=== PATIENT | female | born 1950 | race Caucasian/White ===

== ENCOUNTER → 2017-08-15 | Outpatient (CLI) | payer OTHER ==
--- NOTE | 2017-08-16 15:13 | MAMMOGRAPHY REPORT ---
BILATERAL DIGITAL SCREENING MAMMOGRAM TOMOSYNTHESIS WITH CAD: 08/15/2017 CLINICAL HISTORY: Routine screening. Patient has no complaints. TECHNIQUE: Breast tomosynthesis in addition to standard 2D mammography was performed. Current study was also evaluated with a Computer Aided Detection (CAD) system. COMPARISON: No prior exams were available for comparison. BREAST COMPOSITION: The tissue of both breasts is heterogeneously dense, which may obscure small mas ses. FINDINGS: There is an area of questionable architectural distortion seen within the left superior usha ast on the MLO view only, which may represent the patient's normal fibroglandular tissue pattern alth ough spot compression tomosynthesis views and possible ultrasound are recommended. Additionally, the re is a nodular 9 mm asymmetry seen along the posterior nipple line on the left MLO view middle depth , with possible correlates seen within the left medial breast. Recommend spot compression tomosynthe sis views and possible ultrasound for further evaluation. The remainder of both breasts demonstrate no suspicious masses, calcifications, or areas of informatica architect ural distortion. IMPRESSION: ACR BI-RADS CATEGORY 0: INCOMPLETE EVALUATION: NEED ADDITIONAL IMAGING EVALUATION Left breast asymmetry and possible left breast architectural distortion, for which additional imaging evaluation is recommended. The patient will be called to schedule an appointment. Approximately 10% of breast cancers are not detected with mammography. A negative mammographic report should not delay biopsy if a clinically suggestive mass is present. Aleksandra Thomas M.D. ah/:08/15/2017 16:17:22 Roller Setter: Radha SMITH)(Kurt), [facility] letter sent: Addl Imaging 0 BI-RADS Code: ACR BI-RADS Category 0: Incomplete Evaluation: Need Additional Imaging Evaluation
== END | disposition home or self-care (01) ==
LOC: C.MAMM 15:29
PROVIDERS: ATTEND Family Medicine
DX: Z12.31 Encounter for screening mammogram for malignant neoplasm of breast (principal); Z13.820 Encounter for screening for osteoporosis; N64.89 Other specified disorders of breast; M81.0 Age-related osteoporosis without current pathological fracture; M85.851 Other specified disorders of bone density and structure, right thigh

== ENCOUNTER 2023-06-15 05:46 | Inpatient (IN) ==
[2023-06-15 06:42] LABS: Basophils # (auto) 0.06 K/uL (0.00-0.20); Basophils % (auto) 0.7 %; Eosinophils # (auto) 0.12 K/uL (0.00-0.50); Eosinophils % (auto) 1.4 %; Hematocrit (blood only) 42.3 % (37.0-47.0); Hemoglobin 14.1 g/dl (12.0-16.0); Immature Granulocytes # (auto) 0.03 K/uL (0.01-0.20); Immature Granulocytes % (auto) 0.3 %; Lymphocytes # (auto) 3.17 K/uL (1.20-3.40); Lymphocytes % (auto) 36.1 %; Mean Corpuscular Hemoglobin 31.3 pg (25.0-34.0); Mean Corpuscular Hgb Conc 33.3 g/dL (32.0-36.0); Mean Corpuscular Volume 93.8 fL (80.0-100.0); Mean Platelet Volume 10.8 fL (9.4-12.4); Monocytes # (auto) 0.72 K/uL (0.11-0.59); Monocytes % (auto) 8.2 %; Neutrophils # (auto) 4.69 K/uL (1.40-6.50); Neutrophils % (auto) 53.3 %; Platelet Count 248 K/uL (130-400); RDW Coefficient of Variation 12.6 % (11.5-14.5); RDW Standard Deviation 43.3 fL (36.4-46.3); Red Blood Count 4.51 M/uL (4.20-5.40); White Blood Count 8.79 K/ul (4.8-10.8)
[2023-06-15] MEDS: ONDANSETRON INJ 2 MG/ML 2 ML VIAL IV STA (06:50)
[2023-06-15] MEDS: MoRPHine SULFATE 4 MG/ML 1 ML CARP\\VIAL IV STA ×2 (06:50→10:32)
[2023-06-15] MEDS: SODIUM CHLORIDE 0.9% 1,000 ML IV ONE (06:51)
[2023-06-15 06:59] LABS: Albumin Level 4.3 gm/dl (3.4-5.0); BUN Creatinine Ratio 32.4 (10-20); Bilirubin,Total 0.3 mg/dl (0.2-1.0); Calcium 9.3 mg/dl (8.6-10.3); Est GFR (African American) 99.3 ml/min; Est GFR (Non-African American) 85.7 ml/min; Globulin 2.1 gm/dl (2.5-4.0); Potassium 4.2 mmol/L (3.5-5.1); Total Protein 6.4 gm/dl (6.0-8.3)
--- NOTE | 2023-06-15 06:59 | Emergency Department Note ---
Impression & Plan Cholecystitis, Abnormal CT scan, lung, Thickened endometrium ED Provider Note Provider: Flaco Alexander MD DATE OF SERVICE: 06/15/2023 CHIEF COMPLAINT: Epigastric and chest burning to back HISTORY OF PRESENT ILLNESS: Patient is a 73-year-old female history of GERD and osteoporosis presenting here today reporting over the last several weeks she has been having some intermittent episodes of some burning in her chest upper abdomen radiating to her back. Woke around 2 AM overnight. Did take some Pepcid and only takes Nexium but not improving. No trauma or syncope. No difficulty breathing. No lower abdominal pain. Nauseous and vomited earlier but not really nauseous right now. No radiation of pain to the arms or neck. Did have a glass or 2 of red wine last night. No cardiac history reported. No change with breathing or movement. PAST MEDICAL HISTORY: As noted above MEDICATIONS: Reviewed home medications SOCIAL HISTORY: Non-smoker PHYSICAL EXAM: GENERAL: alert and oriented in no acute distress on stretcher Head: normocephalic and atraumatic EYES: No injection, discharge or icterus. NECK: Trachea midline. ENT: Mucous membranes pink and moist. LUNGS: Airway patent. No retractions. Breath sounds clear with good air entry bilaterally. HEART: Regular rate and rhythm. No chest wall tenderness ABDOMEN: Soft minimal upper abdominal epigastric tenderness. No guarding. No lower abdominal tenderness. SKIN: Acyanotic, warm, dry, without rashes EXTREMITIES: Without swelling, tenderness or deformity NEUROLOGICAL: No focal deficits. No aphasia. No facial droop or slurred speech. Ambulatory. EK bpm sinus bradycardia. No PVC or PAC. Some slight baseline artifact with a QTc of 413. Anterior T wave inversions noted. CONTINUOUS CARDIAC MONITORING: was ordered and showed a heart rate of 50s-60s bpm in normal sinus rhythm to sinus bradycardia Patient's laboratory studies and imaging reviewed. Differential includes Cardiac ischemia, aortic dissection, pulmonary embolism, pneumothorax, pneumonia, pericarditis, myocarditis, esophageal rupture, GERD, cholecystitis, pancreatitis, musculoskeletal, as well as other pathologies. IMPRESSION/MEDICAL DECISION MAKING: Patient Zentz with burning in her mid lower chest epigastrium to the back. No shortness of breath. Benign abdomen on exam without tenderness. Lower suspicion for cholecystitis or perforation. Could be gastric in nature or esophageal. EKG and troponin sent to help evaluate for cardiac etiology. Some subtle T wave changes in the EKG but troponin is normal here. Some nausea and vomiting earlier could represent pancreatitis. Blood work completed without leukocytosis or anemia. No severe electrolyte abnormality or signs of renal dysfunction. No evidence acute hepatitis or pancreatitis based on labs. Urinalysis appears contaminated not conclusive for infection. Sent for CT scan of the chest abdomen pelvis to exclude dissection or other intra-abdominal pathologies such as pancreatitis. Given some morphine and Protonix here initially for symptoms. Minimal improvement. Trial small mount of additional morphine and some GI cocktail. CT reports per radiology without evidence of dissection or PE. 1.3 cm right lower lobe opacity is noted possibly infectious but a repeat imaging in several months to exclude a lesion is recommended. Patient without evidence of diverticulitis or bowel obstruction. Normal appendix reported by radiology. CT report does indicate there is mild gallbladder distention but no large amount of inflammation noted. Will complete arrival quadrant ultrasound for further evaluation. There is a small area of likely endometrial thickening noted that again will need longer-term outpatient follow-up. Will cover empiric with antibiotics given the question of some GI involvement will cover broadly at least initially with Zosyn. Will send for right upper quadrant ultrasound again and given a small amount of additional morphine for pain. Respiratory viral panel negative. Ultrasound questions acute versus chronic cholecystitis. Will discuss with general surgery team. Will expand with Flagyl for additional anaerobic coverage given the ultrasound findings. Will need to be in the hospital given her pain. Again will need further outpatient follow-up of incidental findings in the lung as well as uterus. Discussed with the hospitalist team who will admit her. General surgery plans operative intervention on her gallbladder. DIAGNOSIS: Cholecystitis, upper abdominal pain DISPOSITION: General surgery will evaluate Patient was agreeable with this plan. Past Med/Surg History Medical History Tick bite Surgical History No history of previous surgery Family History Mother Cancer Other Heart disease Hypertension No family history of adverse response to anesthesia No family history of bleeding disorder Denies family history of Ovarian cancer Breast cancer Colorectal cancer Uterine cancer Social History Smoking Status: Never smoker Tobacco Type: Cigarettes Hx Alcohol Use: Yes Hx Substance Use: No current occupational status: retired Feels Safe at Home: Yes Allergies Allergies Allergy/AdvReac Type Severity Reaction Status Date / Time No Known Drug Allergies Allergy Verified 08/31/22 09:24 Home Meds Home Medications Medication Instructions Recorded Confirmed [id number] 250 2 tab PO ONCE PRN Headache 11/27/21 06/15/23 mg-250 mg-65 mg tablet (Excedrin Migraine) diphenhydramine 25 1.5 tab PO HS PRN Sleep 11/27/21 06/15/23 mg-acetaminophen 500 mg tablet (Tylenol PM Extra Strength) esomeprazole magnesium [Nexium] 1 cap PO QAM 11/27/21 06/15/23 Advil See Rx Instructions .Route .COMPLEX 06/15/23 06/15/23 Probiotic See Rx Instructions .Route .COMPLEX 06/15/23 06/15/23 Previous Rx's Medication Instructions Recorded cholecalciferol (vitamin D3) 50 50 mcg PO DAILY #30 caps 11/28/21 mcg (2,000 unit) capsule Results & Data (ED) Vital Signs Vital Signs - 24 hr 06/15/23 05:48 06/15/23 06:07 06/15/23 06:24 Temperature 36.4 C L Temperature Source Oral Pulse Rate 65 56 L Pulse Rate [Apical] Respiratory Rate Respiratory Effort / Characteristics Respiratory Depth Blood Pressure 156/88 H Blood Pressure [Right Arm] Blood Pressure Mean 110 Blood Pressure Mean [Right Arm] Pulse Oximetry 99 99 Oxygen Delivery Method Room Air Room Air Sepsis Recent Fever Within 48 Hours No Sepsis New/Unexplained Change in Mental Status No Sepsis Action Taken by Nursing No Action Required 06/15/23 06:56 06/15/23 06:56 06/15/23 07:41 Temperature Temperature Source Pulse Rate Pulse Rate [Apical] 58 L 65 Respiratory Rate 20 20 Respiratory Effort / Characteristics Non-Labored Spontaneous Non-Labored Respiratory Depth Normal Normal Blood Pressure Blood Pressure [Right Arm] 151/71 H 163/110 H Blood Pressure Mean Blood Pressure Mean [Right Arm] 97 127 Pulse Oximetry 97 98 99 Oxygen Delivery Method Room Air Room Air Room Air Sepsis Recent Fever Within 48 Hours Sepsis New/Unexplained Change in Mental Status Sepsis Action Taken by Nursing 06/15/23 11:01 Temperature Temperature Source Pulse Rate Pulse Rate [Apical] 67 Respiratory Rate 20 Respiratory Effort / Characteristics Non-Labored Respiratory Depth Normal Blood Pressure Blood Pressure [Right Arm] 142/75 H Blood Pressure Mean Blood Pressure Mean [Right Arm] 97 Pulse Oximetry 97 Oxygen Delivery Method Room Air Sepsis Recent Fever Within 48 Hours Sepsis New/Unexplained Change in Mental Status Sepsis Action Taken by Nursing Laboratory Data 06/15/23 06:18 06/15/23 06:18 Lab Results 06/15/23 06/15/23 06/15/23 Range/Units 06:18 06:55 08:55 WBC 8.79 (4.8-10.8) K/ul RBC 4.51 (4.20-5.40) M/uL Hgb 14.1 (12.0-16.0) g/dl Hct 42.3 (37.0-47.0) % MCV 93.8 (80.0-100.0) fL MCH 31.3 (25.0-34.0) pg MCHC 33.3 (32.0-36.0) g/dL RDW Std Deviation 43.3 (36.4-46.3) fL RDW Coeff of Mi 12.6 (11.5-14.5) % Plt Count 248 (130-400) K/uL MPV 10.8 (9.4-12.4) fL Immature Gran % (Auto) 0.3 % Neut % (Auto) 53.3 % Lymph % (Auto) 36.1 % [place] % (Auto) 8.2 % Eos % (Auto) 1.4 % Baso % (Auto) 0.7 % Neut # (Auto) 4.69 (1.40-6.50) K/uL Lymph # (Auto) 3.17 (1.20-3.40) K/uL [place] # (Auto) 0.72 H (0.11-0.59) K/uL Eos # (Auto) 0.12 (0.00-0.50) K/uL Baso # (Auto) 0.06 (0.00-0.20) K/uL Immature Gran # (Auto) 0.03 (0.01-0.20) K/uL PT 10.1 (9.0-12.0) Seconds INR 0.9 (0.9-1.1) APTT 25 (21-31) Seconds PTT Ratio 0.9 Sodium 138 (136-145) mmol/L Potassium 4.2 (3.5-5.1) mmol/L Chloride 106 (98-107) mmol/L Carbon Dioxide 26 (21-32) mmol/L Anion Gap 6 (3-11) BUN 23 (6-23) mg/dl Creatinine 0.71 (0.6-1.2) mg/dl Est Cr Clr Drug Dosing 69.0 ml/min Est GFR ( Amer) 99.3 ml/min Est GFR (Non-Af Amer) 85.7 ml/min BUN/Creatinine Ratio 32.4 H (10-20) Glucose 114 H (70-99(Fasting)) mg/dl Calcium 9.3 (8.6-10.3) mg/dl Total Bilirubin 0.3 (0.2-1.0) mg/dl AST 19 (13-39) U/L ALT 40 (7-52) U/L Alkaline Phosphatase 96 (34-104) U/L Troponin I High Sens 3.9 (0-14) pg/ml Total Protein 6.4 (6.0-8.3) gm/dl Albumin 4.3 (3.4-5.0) gm/dl Globulin 2.1 L (2.5-4.0) gm/dl Albumin/Globulin Ratio 2.0 (0.9-2) Lipase 30 (11-82) U/L Urine Color Yellow Urine Appearance Clear (Clear) Urine pH 5.5 (4.5-7.5) Ur Specific [place] 1.027 (1.000-1.030) Urine Protein Negative (Negative) Urine Glucose (UA) Negative (Negative) Urine Ketones Negative (Negative) Urine Blood Negative (Negative) Urine Nitrite Negative (Negative) Urine Bilirubin Negative (Negative) Urine Urobilinogen Negative (Negative) Ur Leukocyte Esterase 1+ H (Negative) Urine WBC (Auto) 10-30 H (0-5) /hpf Urine RBC (Auto) 0-4 (0-4) /hpf U Hyaline Cast (Auto) 1-5 (0-5) /lpf U Epithel Cells (Auto) >30 H (0-5) /lpf Urine Bacteria (Auto) Negative (Negative) Adenovirus (PCR) Not Detected (NotDetected) B. pertussis DNA (PCR) Not Detected (NotDetected) B.parapertussis DNA PCR Not Detected (NotDetected) C. pneumoniae DNA (PCR) Not Detected (NotDetected) Coronavirus OC43 (PCR) Not Detected (NotDetected) Coronavirus HKU1 (PCR) Not Detected (NotDetected) Coronavirus 229E (PCR) Not Detected (NotDetected) SARS-CoV-2 (PCR) Not Detected (NotDetected) Coronavirus NL63 (PCR) Not Detected (NotDetected) Human Metapneumovir PCR Not Detected (NotDetected) Influenza Type A (PCR) Not Detected (NotDetected) Influenza Type B (PCR) Not Detected (NotDetected) M. pneumoniae (PCR) Not Detected (NotDetected) Parainfluenza 1 (PCR) Not Detected (NotDetected) Parainfluenza 2 (PCR) Not Detected (NotDetected) Parainfluenza 3 (PCR) Not Detected (NotDetected) Parainfluenza 4 (PCR) Not Detected (NotDetected) RSV (PCR) Not Detected (NotDetected) Entero/Rhino (PCR) Not Detected (NotDetected) SARS-CoV-2, RNA, NAAT NEGATIVE (NEGATIVE) 06/15/23 Range/Units 09:50 WBC (4.8-10.8) K/ul RBC (4.20-5.40) M/uL Hgb (12.0-16.0) g/dl Hct (37.0-47.0) % MCV (80.0-100.0) fL MCH (25.0-34.0) pg MCHC (32.0-36.0) g/dL RDW Std Deviation (36.4-46.3) fL RDW Coeff of Mi (11.5-14.5) % Plt Count (130-400) K/uL MPV (9.4-12.4) fL Immature Gran % (Auto) % Neut % (Auto) % Lymph % (Auto) % [place] % (Auto) % Eos % (Auto) % Baso % (Auto) % Neut # (Auto) (1.40-6.50) K/uL Lymph # (Auto) (1.20-3.40) K/uL [place] # (Auto) (0.11-0.59) K/uL Eos # (Auto) (0.00-0.50) K/uL Baso # (Auto) (0.00-0.20) K/uL Immature Gran # (Auto) (0.01-0.20) K/uL PT (9.0-12.0) Seconds INR (0.9-1.1) APTT (21-31) Seconds PTT Ratio Sodium (136-145) mmol/L Potassium (3.5-5.1) mmol/L Chloride (98-107) mmol/L Carbon Dioxide (21-32) mmol/L Anion Gap (3-11) BUN (6-23) mg/dl Creatinine (0.6-1.2) mg/dl Est Cr Clr Drug Dosing ml/min Est GFR ( Amer) ml/min Est GFR (Non-Af Amer) ml/min BUN/Creatinine Ratio (10-20) Glucose (70-99(Fasting)) mg/dl Calcium (8.6-10.3) mg/dl Total Bilirubin (0.2-1.0) mg/dl AST (13-39) U/L ALT (7-52) U/L Alkaline Phosphatase (34-104) U/L Troponin I High Sens 5.5 (0-14) pg/ml Total Protein (6.0-8.3) gm/dl Albumin (3.4-5.0) gm/dl Globulin (2.5-4.0) gm/dl Albumin/Globulin Ratio (0.9-2) Lipase (11-82) U/L Urine Color Urine Appearance (Clear) Urine pH (4.5-7.5) Ur Specific [place] (1.000-1.030) Urine Protein (Negative) Urine Glucose (UA) (Negative) Urine Ketones (Negative) Urine Blood (Negative) Urine Nitrite (Negative) Urine Bilirubin (Negative) Urine Urobilinogen (Negative) Ur Leukocyte Esterase (Negative) Urine WBC (Auto) (0-5) /hpf Urine RBC (Auto) (0-4) /hpf U Hyaline Cast (Auto) (0-5) /lpf U Epithel Cells (Auto) (0-5) /lpf Urine Bacteria (Auto) (Negative) Adenovirus (PCR) (NotDetected) B. pertussis DNA (PCR) (NotDetected) B.parapertussis DNA PCR (NotDetected) C. pneumoniae DNA (PCR) (NotDetected) Coronavirus OC43 (PCR) (NotDetected) Coronavirus HKU1 (PCR) (NotDetected) Coronavirus 229E (PCR) (NotDetected) SARS-CoV-2 (PCR) (NotDetected) Coronavirus NL63 (PCR) (NotDetected) Human Metapneumovir PCR (NotDetected) Influenza Type A (PCR) (NotDetected) Influenza Type B (PCR) (NotDetected) M. pneumoniae (PCR) (NotDetected) Parainfluenza 1 (PCR) (NotDetected) Parainfluenza 2 (PCR) (NotDetected) Parainfluenza 3 (PCR) (NotDetected) Parainfluenza 4 (PCR) (NotDetected) RSV (PCR) (NotDetected) Entero/Rhino (PCR) (NotDetected) SARS-CoV-2, RNA, NAAT (NEGATIVE) Administered Medications Parenteral Electrolytes (Plasma-Lyte A Ph 7.4) 1,000 mls @ 125 mls/hr IV .Q8H AURELIA Stop: 07/15/23 11:59 Last Admin: 06/15/23 12:15 Dose: 125 mls/hr Documented By: EDMUND Discontinued Medications Al Hydrox/Mg Hydrox/Simethicone (Aluminum/Magnesium Susp 30 Ml Udc) 30 ml PO NOW STA Stop: 06/15/23 07:55 Last Admin: 06/15/23 07:58 Dose: 30 ml Documented By: EDMUND Sodium Chloride (Nss) 1,000 mls @ 999 mls/hr IV .Q1H1M ONE Stop: 06/15/23 07:42 Last Infusion: 06/15/23 07:49 Dose: Infused Documented By: Admin: 06/15/23 06:51 Dose: 999 mls/hr Documented By: MIGUE Pantoprazole Sodium 40 mg/ (Syringe) 10 mls @ 5 mls/min IV NOW ONE Stop: 06/15/23 06:43 Last Admin: 06/15/23 07:25 Dose: 5 mls/min Documented By: EDMUND Ceftriaxone Sodium (Rocephin) 2,000 mg in 50 mls @ 100 mls/hr IV NOW STA Stop: 06/15/23 09:14 Last Infusion: 06/15/23 09:29 Dose: Infused Documented By: Admin: 06/15/23 08:54 Dose: 100 mls/hr Documented By: EDMUND Metronidazole (Flagyl) 500 mg in 100 mls @ 100 mls/hr IV NOW STA; Protocol Stop: 06/15/23 11:39 Last Infusion: 06/15/23 11:44 Dose: Infused Documented By: Admin: 06/15/23 11:01 Dose: 100 mls/hr Documented By: EDMUND Ioversol (Optiray 320 100ml) 115 ml IV ONCE ONE Stop: 06/15/23 07:44 Last Admin: 06/15/23 07:43 Dose: 115 ml Documented By: ESTHER Morphine Sulfate (Morphine Sulfate 4 Mg/Ml 1 Ml Carp\Vial) 4 mg IV NOW STA Stop: 06/15/23 06:38 Last Admin: 06/15/23 06:50 Dose: 4 mg Documented By: MIGUE Morphine Sulfate (Morphine Sulfate 2 Mg/Ml Carp) 2 mg IV NOW STA Stop: 06/15/23 07:55 Last Admin: 06/15/23 07:58 Dose: 2 mg Documented By: EDMUND Morphine Sulfate (Morphine Sulfate 2 Mg/Ml Carp) 2 mg IV NOW STA Stop: 06/15/23 08:40 Last Admin: 06/15/23 08:54 Dose: 2 mg Documented By: EDMUND Morphine Sulfate (Morphine Sulfate 4 Mg/Ml 1 Ml Carp\Vial) 4 mg IV NOW STA Stop: 06/15/23 10:24 Last Admin: 06/15/23 10:32 Dose: 4 mg Documented By: EDMUND Ondansetron HCl (Ondansetron Inj 2 Mg/Ml 2 Ml Vial) 4 mg IV NOW STA Stop: 06/15/23 06:38 Last Admin: 06/15/23 06:50 Dose: 4 mg Documented By: MIGUE Imaging Data Radiologist's Impression: Chest X-Ray 06/15/23 05:56 XR chest 1V portable CLINICAL HISTORY: Chest pain, nonspecific COMPARISON STUDY: No previous studies for comparison. FINDINGS: Lung volumes are normal. Lungs are clear. There is no pneumothorax or pleural effusion. Cardiac size is normal. Mediastinal contours are normal. There is no evidence for pulmonary edema. IMPRESSION: No acute cardiopulmonary findings. ACT 112: Negative or not required by law. Electronically signed by: Prabhu Durbin M.D. 06/15/2023 7:44 AM Abdomen/Pelvis CT 06/15/23 06:42 CT OF THE ABDOMEN AND PELVIS WITH CONTRAST CLINICAL HISTORY: chest/epigastric pain to back, nausea COMPARISON STUDY: None. TECHNIQUE: Following IV administration of 115 mL of Optiray, axial images of the abdomen and pelvis were obtained from the lung bases to the proximal femurs. Images were reviewed in the axial, sagittal, and coronal planes. IV contrast was administered without complication. Automated exposure control was utilized for the study. A dose lowering technique was utilized adhering to the principles of ALARA. FINDINGS: No pneumatosis, free air or portal venous gas is present. Subcentimeter left hepatic lobe lesion favors a cyst. Caliber of the common bile duct is at the upper limits of normal. There is no pancreatic ductal dilatation. The spleen, glands, left kidney and pancreas are unremarkable. There is no hydronephrosis. There is a 2 cm right renal cyst. Gallbladder is slightly distended. No pericholecystic infiltration. There is colonic diverticulosis without evidence for acute diverticulitis. There is no evidence for a bowel obstruction. The appendix is normal. There is no lymphadenopathy or ascites. No fluid collections are present. Uterus is abnormal in appearance. Specifically, a 2.9 x 2.8 cm mixed attenuation abnormality within the central aspect of the uterus is noted. This favors endometrial thickening. No acute fractures are identified. The caliber of the abdominal aorta is normal. There is no aortic dissection. IMPRESSION: 1. Mildly distended gallbladder without pericholecystic infiltration. The findings are not strongly suggestive of acute cholecystitis however ultrasound is recommended if right upper quadrant pain. 2. Colonic diverticulosis. No evidence for acute diverticulitis. 3. Normal appendix. No bowel obstruction. No bowel wall thickening. 4. 2.9 x 2.6 cm mixed attenuation abnormality within the central aspect of the uterus. This favors endometrial thickening, abnormal in a postmenopausal patient. Less likely, this could reflect a uterine lesion. Correlation with postmenopausal bleeding and follow-up nonemergent pelvic ultrasound and gynecologic consultation is recommended. ACT 112: Negative or not required by law. Electronically signed by: Prabhu Durbin M.D. 06/15/2023 8:23 AM Chest CTA 06/15/23 06:42 CT angio chest w con CLINICAL HISTORY: chest/epigastric pain to back, nausea COMPARISON STUDY: Chest radiograph performed earlier today. TECHNIQUE: Helical axial images of the chest were obtained during arterial phase following intravenous injection of 115 cc of Optiray 320 IV. Sagittal and coronal reconstructions were viewed as well as maximal intensity projections on an independent 3-D workstation. Automated exposure control was utilized for the study. A dose lowering technique was utilized adhering to the principles of ALARA. FINDINGS: There is no thoracic aortic dissection. The caliber of the thoracic aorta is normal. There is mild plaque of the aortic arch. No pulmonary emboli are identified. Size of the heart is at the upper limits of normal. There is no pneumothorax or pleural fusion. There is a 1.3 cm subpleural irregular airspace opacity within the right lower lobe on image 106 of 245. Otherwise, lungs are clear. No acute fractures within the bony thorax. Please note that the abdomen and pelvis CT will be reported separately. IMPRESSION: 1. No thoracic aortic dissection. 2. No pulmonary emboli. 3. 1.3 cm subpleural right lower lobe airspace opacity. This favors a focal mild infectious process. However, a chest CT in 3 months to ensure resolution is recommended to exclude the possibility of a pulmonary lesion. ACT 112: Negative or not required by law. Electronically signed by: Prabhu Durbin M.D. 06/15/2023 8:04 AM Gallbladder Ultrasound 06/15/23 08:39 US gallbladder CLINICAL HISTORY: Abdominal pain. COMPARISON STUDY: CT of the abdomen and pelvis performed earlier today. TECHNIQUE: Sonography of the right upper quadrant was performed. FINDINGS: There is a 7 mm hepatic cyst. There is no biliary ductal dilatation. The common bile duct measures 6 mm in caliber. Pancreatic body is normal. Head and tail are mildly obscured by overlying bowel gas. Multiple gallstones within the gallbladder are present. Bladder wall is mildly thickened, measuring 4 mm. There is trace pericholecystic fluid. Sonographic Salazar sign was difficult to assess for given pain medication administration. There is no right hydronephrosis. A right renal cyst is incidentally noted. IMPRESSION: Cholelithiasis and mild gallbladder wall thickening. The findings may reflect acute or chronic cholecystitis. ACT 112: Negative or not required by law. Electronically signed by: Prabhu Durbin M.D. 06/15/2023 10:04 AM Discharge Plan Visit Data Chief Complaint: Cardiac Assessment Stated Complaint: CHEST PRESSURE INTO BACK,ABD PAIN ED Provider: Flaco Alexander Discharge Problem: Cholecystitis, Abnormal CT scan, lung, Thickened endometrium Patient Disposition: Being Evaluated by Hospitalist Forms Stand Alone Forms: [facility] Prescriptions Prescriptions: No Action Excedrin Migraine 250-250-65 mg tablet 2 tab PO ONCE PRN (Reason: Headache) esomeprazole magnesium [Nexium] 1 cap PO QAM diphenhydramine-acetaminophen [Tylenol PM Extra Strength] 25-500 mg tablet 1.5 tab PO HS PRN (Reason: Sleep) cholecalciferol (vitamin D3) 50 mcg (2,000 unit) capsule 50 mcg PO DAILY Qty: 30 8RF Advil See Rx Instructions .ROUTE .COMPLEX Rx Instructions: as directed Probiotic See Rx Instructions .ROUTE .COMPLEX Rx Instructions: as directed Referrals Referrals: Avelino Levine [Primary Care Provider] -
[2023-06-15 07:06] LABS: Troponin I High Sensitivity 3.9 pg/ml (0-14)
[2023-06-15 07:06] LABS: Appearance Urine Clear (Clear); Bacteria Urine Automated Negative (Negative); Bilirubin Urine Negative (Negative); Blood Urine Negative (Negative); Color Urine Yellow; Epithelial Cell Urine Auto >30 /lpf (0-5); Glucose Urine UA Negative (Negative); Ketones Urine Negative (Negative); Leukocyte Esterase Urine 1+ (Negative); Nitrite Urine Negative (Negative); Protein Urine Negative (Negative); RBC Urine Automated 0-4 /hpf (0-4); Specific Gravity Urine 1.027 (1.000-1.030); Urobilinogen Urine Negative (Negative); pH Urine 5.5 (4.5-7.5)
[2023-06-15] MEDS: PANTOprazole 40 MG in SYRINGE 0 ML IV ONE (07:25)
[2023-06-15 07:31] LABS: INR 0.9 (0.9-1.1); Partial Thromboplastin Ratio 0.9; Partial Thromboplastin Time 25 Seconds (21-31); Prothrombin Time 10.1 Seconds (9.0-12.0)
[2023-06-15] MEDS: OPTIRAY 320 100ml IV ONE (07:43)
--- NOTE | 2023-06-15 07:46 | XRay Report ---
XR chest 1V portable CLINICAL HISTORY: Chest pain, nonspecific COMPARISON STUDY: No previous studies for comparison. FINDINGS: Lung volumes are normal. Lungs are clear. There is no pneumothorax or pleural effusion. Car diac size is normal. Mediastinal contours are normal. There is no evidence for pulmonary edema. IMPRESSION: No acute cardiopulmonary findings. ACT 112: Negative or not required by law. Electronically signed by: Prabhu Durbin M.D. 06/15/2023 7:44 AM
[2023-06-15 07:51] LABS: Adenovirus PCR Not Detected (NotDetected); Bordetella parapertussis PCR Not Detected (NotDetected); Bordetella pertussis PCR Not Detected (NotDetected); Chlamydia pneumoniae PCR Not Detected (NotDetected); Coronavirus 229E PCR Not Detected (NotDetected); Coronavirus CoV-2 (COVID19)PCR Not Detected (NotDetected); Coronavirus HKU1 PCR Not Detected (NotDetected); Coronavirus NL63 PCR Not Detected (NotDetected); Coronavirus OC43PCR Not Detected (NotDetected); Human Metapneumovirus PCR Not Detected (NotDetected); Influenza A PCR Not Detected (NotDetected); Influenza B PCR Not Detected (NotDetected); Mycoplasma pneumoniae PCR Not Detected (NotDetected); Parainfluenza Virus 1 PCR Not Detected (NotDetected); Parainfluenza Virus 2 PCR Not Detected (NotDetected); Parainfluenza Virus 3 PCR Not Detected (NotDetected); Parainfluenza Virus 4 PCR Not Detected (NotDetected); Respiratory Syncytial VirusPCR Not Detected (NotDetected); Rhinovirus/Enterovirus PCR Not Detected (NotDetected)
[2023-06-15] MEDS: ALUMINUM/MAGNESIUM SUSP 30 ML UDC PO STA (07:58)
[2023-06-15] MEDS: MoRPHine SULFATE 2 MG/ML CARP IV STA ×2 (07:58→08:54)
--- NOTE | 2023-06-15 08:06 | CT Scan Report ---
CT angio chest w con CLINICAL HISTORY: chest/epigastric pain to back, nausea COMPARISON STUDY: Chest radiograph performed earlier today. TECHNIQUE: Helical axial images of the chest were obtained during arterial phase following intravenou s injection of 115 cc of Optiray 320 IV. Sagittal and coronal reconstructions were viewed as well as maximal intensity projections on an independent 3-D workstation. Automated exposure control was utili [employer]football for the study. A dose lowering technique was utilized adhering to the principles of ALARA. FINDINGS: There is no thoracic aortic dissection. The caliber of the thoracic aorta is normal. There is mild plaque of the aortic arch. No pulmonary emboli are identified. Size of the heart is at the up per limits of normal. There is no pneumothorax or pleural fusion. There is a 1.3 cm subpleural irregu lar airspace opacity within the right lower lobe on image 106 of 245. Otherwise, lungs are clear. No acute fractures within the bony thorax. Please note that the abdomen and pelvis CT will be reported s eparately. IMPRESSION: 1. No thoracic aortic dissection. 2. No pulmonary emboli. 3. 1.3 cm subpleural right lower lobe airspace opacity. This favors a focal mild infectious process. However, a chest CT in 3 months to ensure resolution is recommended to exclude the possibility of a p ulmonary lesion. ACT 112: Negative or not required by law. Electronically signed by: Prabhu Durbin M.D. 06/15/2023 8:04 AM
--- NOTE | 2023-06-15 08:25 | CT Scan Report ---
CT OF THE ABDOMEN AND PELVIS WITH CONTRAST CLINICAL HISTORY: chest/epigastric pain to back, nausea COMPARISON STUDY: None. TECHNIQUE: Following IV administration of 115 mL of Optiray, axial images of the abdomen and pelvis w ere obtained from the lung bases to the proximal femurs. Images were reviewed in the axial, sagittal, and coronal planes. IV contrast was administered without complication. Automated exposure control w as utilized for the study. A dose lowering technique was utilized adhering to the principles of STEPHON Borrego. FINDINGS: No pneumatosis, free air or portal venous gas is present. Subcentimeter left hepatic lobe l esion favors a cyst. Caliber of the common bile duct is at the upper limits of normal. There is no pa ncreatic ductal dilatation. The spleen, glands, left kidney and pancreas are unremarkable. There is n o hydronephrosis. There is a 2 cm right renal cyst. Gallbladder is slightly distended. No pericholecy stic infiltration. There is colonic diverticulosis without evidence for acute diverticulitis. There i s no evidence for a bowel obstruction. The appendix is normal. There is no lymphadenopathy or ascites . No fluid collections are present. Uterus is abnormal in appearance. Specifically, a 2.9 x 2.8 cm mi xed attenuation abnormality within the central aspect of the uterus is noted. This favors endometrial thickening. No acute fractures are identified. The caliber of the abdominal aorta is normal. There i s no aortic dissection. IMPRESSION: 1. Mildly distended gallbladder without pericholecystic infiltration. The findings are not strongly s uggestive of acute cholecystitis however ultrasound is recommended if right upper quadrant pain. 2. Colonic diverticulosis. No evidence for acute diverticulitis. 3. Normal appendix. No bowel obstruction. No bowel wall thickening. 4. 2.9 x 2.6 cm mixed attenuation abnormality within the central aspect of the uterus. This favors en dometrial thickening, abnormal in a postmenopausal patient. Less likely, this could reflect a uterine lesion. Correlation with postmenopausal bleeding and follow-up nonemergent pelvic ultrasound and sugar controller ecologic consultation is recommended. ACT 112: Negative or not required by law. Electronically signed by: Prabhu Durbin M.D. 06/15/2023 8:23 AM
[2023-06-15] MEDS: cefTRIAXone SODIUM 2,000 MG/50 ML BAG IV STA (08:54)
--- NOTE | 2023-06-15 10:05 | Ultrasound Report ---
US gallbladder CLINICAL HISTORY: Abdominal pain. COMPARISON STUDY: CT of the abdomen and pelvis performed earlier today. TECHNIQUE: Sonography of the right upper quadrant was performed. FINDINGS: There is a 7 mm hepatic cyst. There is no biliary ductal dilatation. The common bile duct m easures 6 mm in caliber. Pancreatic body is normal. Head and tail are mildly obscured by overlying angella wel gas. Multiple gallstones within the gallbladder are present. Bladder wall is mildly thickened, me asuring 4 mm. There is trace pericholecystic fluid. Sonographic Salazar sign was difficult to assess f or given pain medication administration. There is no right hydronephrosis. A right renal cyst is inci dentally noted. IMPRESSION: Cholelithiasis and mild gallbladder wall thickening. The findings may reflect acute or ch ronic cholecystitis. ACT 112: Negative or not required by law. Electronically signed by: Prabhu Durbin M.D. 06/15/2023 10:04 AM
[2023-06-15] MEDS: metroNIDAZOLE 500 MG/100 ML BAG IV STA (11:01)
--- NOTE | 2023-06-15 11:33 | History & Physical Report ---
Date of Service June 15, 2023 Assessment & Plan (1) Acute acalculous cholecystitis: Plan: Clinically and radiographically consistent with calculus cholecystitis. Discussed her options as well as risks of cholecystectomy which include bleeding, infection, injury to another organ or bile duct, bile leaks, DVT, PE, NC, CVA etc. Following our discussion I answered all of her questions. We will proceed today with laparoscopic cholecystectomy. History of Present Illness Primary Care Provider: Tonyjameecheryl Decker is here with complaint of lower chest pain/upper abdominal pain with radiation into her back as well as nausea. She has had several episodes over the last month or so. This is by far the worst. She does have some mild acid reflux but this is different. Workup in the emergency room includes imaging which shows gallstones as well as likely acute cholecystitis. Allergies Allergy/AdvReac Type Severity Reaction Status Date / Time No Known Drug Allergies Allergy Verified 08/31/22 09:24 Home Medications Medication Instructions Recorded Confirmed Type wcizmzv-yubdlnnsntlnh-kopjsmiw 250 2 tab PO ONCE PRN Headache 11/27/21 06/15/23 History mg-250 mg-65 mg tablet (Excedrin Migraine) diphenhydramine 25 1.5 tab PO HS PRN Sleep 11/27/21 06/15/23 History mg-acetaminophen 500 mg tablet (Tylenol PM Extra Strength) esomeprazole magnesium [Nexium] 1 cap PO QAM 11/27/21 06/15/23 History cholecalciferol (vitamin D3) 50 50 mcg PO DAILY #30 caps 11/28/21 06/15/23 Rx mcg (2,000 unit) capsule Advil See Rx Instructions .Route .COMPLEX 06/15/23 06/15/23 History Probiotic See Rx Instructions .Route .COMPLEX 06/15/23 06/15/23 History Past Med/Surg History Medical History Tick bite Surgical History No history of previous surgery Family History (Updated 01/16/22 @ 09:27 by Audrey Pryor MA) Mother Cancer Other Heart disease Hypertension No family history of adverse response to anesthesia No family history of bleeding disorder Denies family history of Ovarian cancer Breast cancer Colorectal cancer Uterine cancer Social History (Updated 01/16/22 @ 09:27 by Audrey Pryor MA) Smoking Status: Never smoker Tobacco Type: Cigarettes Hx Alcohol Use: Yes Hx Substance Use: No current occupational status: retired Feels Safe at Home: Yes Review of Systems All systems reviewed & are unremarkable except as noted in HPI & below Physical Exam Constitutional: WD/WN, vitals as above no acute distress and not ill appearing Eyes: PERRL, conjunctivae normal, anicteric sclerae EOM intact bilaterally ENMT: external ear and nose normal, oropharynx normal Ears: no hearing impairment Neck: trachea midline, no thyromegaly Respiratory: normal respiratory effort; no respiratory distress and does not use accessory muscles Cardiovascular: Rate/Rhythm: regular rate and regular rhythm Gastrointestinal (Abdomen): Soft. Positive right upper quadrant tenderness/epigastric tenderness. No peritoneal signs. Skin: no rashes, warm and dry Psychiatric: Orientation: alert, oriented x 3 and cooperative Results & Data Vital Signs (Past 12 Hours) Vital Signs Temp Pulse Pulse Resp BP BP Pulse Ox 06/15/23 11:01 67 20 142/75 H 97 06/15/23 07:41 65 20 163/110 H 99 06/15/23 06:56 58 L 20 151/71 H 98 06/15/23 06:56 97 06/15/23 06:24 99 06/15/23 06:07 56 L 06/15/23 05:48 36.4 C L 65 156/88 H 99 O2 Del Method 06/15/23 11:01 Room Air 06/15/23 07:41 Room Air 06/15/23 06:56 Room Air 06/15/23 06:56 Room Air 06/15/23 06:24 Room Air 06/15/23 06:07 06/15/23 05:48 Room Air
[2023-06-15] MEDS ORDERED: ACETAMINOPHEN 1,000 MG/100 ML VIAL IV PRN (11:57)
--- NOTE | 2023-06-15 11:57 | History & Physical Report ---
Date of Service June 15, 2023 Assessment & Plan (1) Acute acalculous cholecystitis: Plan: Acute cholecystitis CT and abdominal pain suspicious for acute acalculus cholecystitis No evidence of obstructive disease, AST/ALT/bilirubin are normal Surgery consulted Patient continued on Rocephin/Flagyl No leukocytosis, nontoxic N.p.o., IV FM IV Tylenol, scaled morphine ordered for pain control -She did have some radiation of her abdominal pain into her right shoulderConsistent with referred gallbladder pain. This has not been worsened or induced by exertion, is worsened on meals, and has not been associate with any shortness of breath. No acute territorial ST segment or T wave changes on EKG. High sensitive troponin is normal x2. No evidence of cardiac involvement. (2) Abnormal CT scan, lung: Plan: RLL opacity CT with developing right lower lobe airspace opacity. DDx includes occult malignancy, developing pneumonia. History of 20-year 1/3 pack/day tobacco use. PCT pending Patient is empirically covered with Rocephin as part of cholecystitis treatment above Respiratory bio fire is negative MRSA nares pending, if worsening clinical status and nares positive can add adjunct vancomycin otherwise we will defer repeat CT in 3 months to reassess if patient is otherwise stable (3) Thickened endometrium: Plan: Endometrial thickening Nonemergent OB follow-up and pelvic ultrasound Patient reports no history of vaginal bleeding, pelvic pain or INHALATION THERAPY TEACHER symptoms. Discontinued follow-up with OV previously due to age Plan Chronic stable issues Osteoporosis: Outpatient follow-up, vitamin D/calcium supplementation as outpatient GERD: Decline EGD as outpatient. Continue PPI for stress prophylaxis Former tobacco use: Patient reports no tobacco use in 6 months, formerly 1/3 pack/day for approximately 20 years DVT prophylaxis: SCDs, pharmacal prophylaxis held pending surgical evaluation Diet: N.p.o., Plasma-Lyte 125 cc/h CODE STATUS: DNR/DN --> listed as conditional code. Patient reports in the setting of a complete cardiopulmonary arrest she would want to be DNR/DNI and would not want resuscitation consistent with DNR/DNI. Outside of a complete cardiopulmonary arrest she would be okay with aggressive measures including in tubation/vasopressors --> listed a CC w/ OK for intubation/ventilation Disposition: Medical/surgical History of Present Illness Primary Care Provider: Avelino Decker is a 73-year-old female with past medical history of vestibular migraine, GERD and no history of cardiac, pulmonary, or renal disease who presented to the ER with abdominal pain, nausea, and some slow right rib and epigastric discomfort. She has had multiple episodes in the preceding month similar territory to reflux but much worse in quality. On ER evaluation she has no leukocytosis, no VALENTINE although has evidence clinically of some volume contraction, and does not have a transaminitis or hyperbilirubinemia. UA is co ntaminated/bland. Bio fire is negative. Gallbladder ultrasound shows cholelithiasis and gallbladder wall thickening suspicious for acute versus chronic cholecystitis. CTA performed for concerns of chest pain shows no thoracic dissection, no PE, and a right lower lobe airspace opacity? Mild focal infectious process recommended for 3-month follow-up to exclude pulmonary lesion. CT of the abdomen and pelvis shows a distended gallbladder as noted on ultrasound, mixed attenuation of the uterus favoring endometrial thickening but which should have nonemergent INHALATION THERAPY TEACHER follow-up and pelvic ultrasound is noted, otherwise no acute findings Per Patient: Approximately 1 month of symptoms overall, increasing in intensity and frequency. Pain is in her abdomen, stomach with distention and bloating feeling like "sometimes my stomach is going to explode ", is worsened with meals, is not worsened with exertion. Does have radiation to right shoulder. No pain at time of bedside assessment. Pain comes in spasms, last night lasting ~3 hours at a time with a burning quality. Recurred a fourth time ~1am and never went away until she came into the ER and got meds/fluids. Currently pain free +Radiation to right shoulder BMs normal, brown. No bloody/black/lissa colored BMs No shortness of breath. 1 episodes of feeling sweaty/warm overnight last night otherwise no sweats Denies fevers and shaking chills No history of heart, lung, or renal disease Denies pain on exertion. Feels she is able to walk and go about normal activities without any limiting dyspnea or chest discomfort Did have BCC of th enose removed, otherwise no history of cancer. No history of DVT/PE Medical History: Reviewed Medications: Reviewed Surgical History: Reviewed Family history: Reviewed Allergies: Reviewed Social History: Former tobacco use, quit 6 months prior to that 1/3ppd x20 year tobacco use. 1 glass wine/night no 5 nights per week Code Status: DNRDNI Allergies Allergy/AdvReac Type Severity Reaction Status Date / Time No Known Drug Allergies Allergy Verified 08/31/22 09:24 Home Medications Medication Instructions Recorded Confirmed Type iynsdpc-theipqesnkzul-ejtwcrhk 250 2 tab PO ONCE PRN Headache 11/27/21 06/15/23 History mg-250 mg-65 mg tablet (Excedrin Migraine) diphenhydramine 25 1.5 tab PO HS PRN Sleep 11/27/21 06/15/23 History mg-acetaminophen 500 mg tablet (Tylenol PM Extra Strength) esomeprazole magnesium [Nexium] 1 cap PO QAM 11/27/21 06/15/23 History cholecalciferol (vitamin D3) 50 50 mcg PO DAILY #30 caps 11/28/21 06/15/23 Rx mcg (2,000 unit) capsule Advil See Rx Instructions .Route .COMPLEX 06/15/23 06/15/23 History Probiotic See Rx Instructions .Route .COMPLEX 06/15/23 06/15/23 History Past Med/Surg History Medical History Tick bite Surgical History No history of previous surgery Family History Mother Cancer Other Heart disease Hypertension No family history of adverse response to anesthesia No family history of bleeding disorder Denies family history of Ovarian cancer Breast cancer Colorectal cancer Uterine cancer Social History Smoking Status: Never smoker Tobacco Type: Cigarettes Hx Alcohol Use: Yes Hx Substance Use: No current occupational status: retired Feels Safe at Home: Yes Physical Exam Physical Exam: General: A&Ox3. NAD. Cooperative. HEENT: Atraumatic, normocephalic. Vision/hearing intact Pulm: CTAB A&P. -wheezes, -rales, -rhonchi. Symmetrical chest rise. No increased work of breathing. No respiratory distress. Cardiac: RRR, -mrg. Radial pulses intact and symmetrical. Abdominal: +mild RUQ TTP, soft, no rebound/guarding, soft. BS present. Results & Data Results & Data Vital Signs (Past 12 Hours) Vital Signs Temp Pulse Pulse Resp BP BP Pulse Ox 06/15/23 11:01 67 20 142/75 H 97 06/15/23 07:41 65 20 163/110 H 99 06/15/23 06:56 58 L 20 151/71 H 98 06/15/23 06:56 97 06/15/23 06:24 99 06/15/23 06:07 56 L 06/15/23 05:48 36.4 C L 65 156/88 H 99 O2 Del Method 06/15/23 11:01 Room Air 06/15/23 07:41 Room Air 06/15/23 06:56 Room Air 06/15/23 06:56 Room Air 06/15/23 06:24 Room Air 06/15/23 06:07 06/15/23 05:48 Room Air PG Care Time/CCT Total # of Minutes Spent Total Time Spent with Patient: Total time spent is greater than 50% in coordination of care (as documented) at patient's floor/unit and/or counseling patient: Coding Level of Care Code 10084 INT INP/OBS CARE 2/55MIN Diagnoses Acute acalculous cholecystitis K81.[address] scan, lung R91.8 Thickened endometrium R93.89
[2023-06-15] MEDS: PLASMA-LYTE A 1,000 ML IV SCH (12:15)
--- NOTE | 2023-06-15 13:35 | Electrocardiogram Report ---
Test Reason : Blood Pressure : / mmHG Vent. Rate : 059 BPM Atrial Rate : 059 BPM P-R Int : 142 ms QRS Dur : 082 ms QT Int : 418 ms P-R-T Axes : 055 066 047 degrees QTc Int : 413 ms Sinus bradycardia Nonspecific ST abnormality Abnormal ECG No previous ECGs available Confirmed by Leonides Mcnulty ([id number]) on 06/15/2023 1:35:29 PM Referred By: Confirmed By:Leonides Mcnulty
[2023-06-15] MEDS ORDERED: fentaNYL citrate PF 100 MCG/2 ML VIAL ONE (13:42)
[2023-06-15] MEDS ORDERED: ONDANSETRON INJ 2 MG/ML 2 ML VIAL ONE (13:42)
[2023-06-15] MEDS ORDERED: DEXAMETHASONE SOD INJ 4 MG/ML VIAL ONE (13:42)
[2023-06-15] MEDS ORDERED: PROPOFOL IV EMULSION 10 MG/ML 20 ML VIAL IV ONE (13:42)
[2023-06-15] MEDS ORDERED: ROCURONIUM BROMIDE 10 MG/ML 5 ML VIAL IV ONE (13:42)
[2023-06-15] MEDS ORDERED: LIDOCAINE 2% 2 ML VIAL/AMP(20MG/ML) INFIL ONE (13:42)
[2023-06-15] MEDS ORDERED: MIDAZOLAM HCL 1 MG/ML 2ML VIAL ONE (13:42)
--- NOTE | 2023-06-15 13:42 | Anesthesiology Consultation ---
Date of Service June 15, 2023 Assessment & Plan Chart Review Chart Review: Acceptable Risk for Surgery and Patient NOT seen in Pre Admission Testing Consults Requested none History Surgery Operation Date: 06/15/23 12:00 Proposed Procedures p Laparoscopic Cholecystectomy - Sami Conde DO Height/Weight Height: 5 ft 4 in Weight: 68.4 kg Allergies Allergy/AdvReac Type Severity Reaction Status Date / Time No Known Drug Allergies Allergy Verified 08/31/22 09:24 Medications Home Medications Medication Instructions Recorded Confirmed Last Taken fjcyjoe-xnuymnhzcprxb-eekqhmvi 250 2 tab PO ONCE PRN Headache 11/27/21 06/15/23 Unknown mg-250 mg-65 mg tablet (Excedrin Migraine) diphenhydramine 25 1.5 tab PO HS PRN Sleep 11/27/21 06/15/23 Unknown mg-acetaminophen 500 mg tablet (Tylenol PM Extra Strength) esomeprazole magnesium [Nexium] 1 cap PO QAM 11/27/21 06/15/23 Unknown cholecalciferol (vitamin D3) 50 50 mcg PO DAILY #30 caps 11/28/21 06/15/23 Unknown mcg (2,000 unit) capsule Advil See Rx Instructions .Route .COMPLEX 06/15/23 06/15/23 Unknown Probiotic See Rx Instructions .Route .COMPLEX 06/15/23 06/15/23 Unknown Active Medications Generic Name Dose Route Start Last Admin Trade Name Freq PRN Reason Stop Dose Admin Parenteral Electrolytes 1,000 mls @ 125 mls/hr 06/15/23 12:00 06/15/23 12:15 Plasma-Lyte A Ph 7.4 IV 07/15/23 11:59 125 mls/hr .Q8H AURELIA Administration Past Medical History Medical History Tick bite Past Family History Family History Mother Cancer Other Heart disease Hypertension No family history of adverse response to anesthesia No family history of bleeding disorder Denies family history of Ovarian cancer Breast cancer Colorectal cancer Uterine cancer Past Surgical History Surgical History No history of previous surgery Social History Smoking Status: Never smoker Hx Alcohol Use: Yes Hx Substance Use: No Physical Exam Vital Signs Last Vital Signs Temp 36.4 C L 06/15/23 05:48 Pulse 58 L 06/15/23 13:02 Resp 20 06/15/23 13:02 BP 93/68 L 06/15/23 13:02 Pulse Ox 93 06/15/23 13:02 O2 Del Method Room Air 06/15/23 13:02 Constitutional WD/WN, vitals as above no acute distress and not ill appearing Eyes PERRL, conjunctivae normal, anicteric sclerae EOM intact bilaterally ENMT external ear and nose normal, oropharynx normal Ears: no hearing impairment Neck trachea midline, no thyromegaly Respiratory normal respiratory effort; no respiratory distress and does not use accessory muscles Cardiovascular Rate/Rhythm: regular rate and regular rhythm Skin no rashes, warm and dry Psychiatric Orientation: alert, oriented x 3 and cooperative Testing Laboratory Results 06/15/23 06:18 06/15/23 06:18 PT 10.1 Seconds (9.0-12.0) 06/15/23 06:18 INR 0.9 (0.9-1.1) 06/15/23 06:18 APTT 25 Seconds (21-31) 06/15/23 06:18 Urine Color Yellow 06/15/23 06:55 Urine Appearance Clear (Clear) 06/15/23 06:55 Urine pH 5.5 (4.5-7.5) 06/15/23 06:55 Ur Specific [place] 1.027 (1.000-1.030) 06/15/23 06:55 Urine Protein Negative (Negative) 06/15/23 06:55 Urine Glucose (UA) Negative (Negative) 06/15/23 06:55 Urine Ketones Negative (Negative) 06/15/23 06:55 Urine Nitrite Negative (Negative) 06/15/23 06:55 Ur Leukocyte Esterase 1+ (Negative) H 06/15/23 06:55 Urine WBC (Auto) 10-30 /hpf (0-5) H 06/15/23 06:55 Urine RBC (Auto) 0-4 /hpf (0-4) 06/15/23 06:55 U Hyaline Cast (Auto) 1-5 /lpf (0-5) 06/15/23 06:55 U Epithel Cells (Auto) >30 /lpf (0-5) H 06/15/23 06:55 Urine Bacteria (Auto) Negative (Negative) 06/15/23 06:55
[2023-06-15] MEDS ORDERED: ATROPINE SULFATE 0.1 MG/ML 10ML SYR IV PRN (13:43)
[2023-06-15] MEDS ORDERED: DROPERIDOL 5 MG/2 ML VIAL IV PRN (13:43)
[2023-06-15] MEDS ORDERED: fentaNYL citrate PF 100 MCG/2 ML VIAL IV PRN (13:43)
[2023-06-15] MEDS ORDERED: ePHEDrine sulfate 50 MG/ML AMP IV PRN (13:43)
[2023-06-15] MEDS ORDERED: SUGAMMADEX SODIUM 200 MG/2 ML VIAL IV ONE (15:49)
[2023-06-15] MEDS: BUPIVACAINE/EPINEPHRINE 0.5% MPF 1:200,000 30 ML VIAL ONE (15:49)
--- NOTE | 2023-06-15 16:10 | Operative Report ---
[facility] Post Operative Report Pre & Post Diagnosis Operation Date: 06/15/23 12:00 Pre-Op Diagnosis: Acute Cholecystitis Post-Op Diagnosis: Acute Cholecystitis I identified the patient and participated in the time-out.: Yes Procedure Operation Date: 06/15/23 12:00 Actual Procedures p Laparoscopic Cholecystectomy(Not Applicable) - Sami Conde DO Surgeon Sami Conde DO Box Sealing Machine Catcher chivo Ash Estimated Blood Loss 100 Findings Consistent with Post-Op Diagnosis Specimens gallbladdder Description of Procedure After informed consent was obtained the patient was taken to the operating room and placed in the supine position. After successful intubation the abdomen was sterilely prepped and draped in usual fashion. A periumbilical incision was made with an 11 blade scalpel and carried down through the soft tissue using electrocautery. The anterior rectus fascia was opened using electrocautery and 2 #0 Vicryl stay sutures were placed. The peritoneum was elevated with hemostats and incised under direct vision using Metzenbaum scissors. A finger sweep was performed and a 12 mm Sow trocar was placed. The abdomen was insufflated to 18 mmHg. The laparoscope was inserted and the abdomen was examined in 360. The gallbladder was inflamed otherwise no gross abnormalities were identified. A subxiphoid 5 mm port which would later be converted to a 12 mm port and 2 right upper quadrant 5 mm ports were placed under direct vision. The patient was placed in a reverse Trendelenburg position and slightly airplan ed to the left. The gallbladder was grasped and elevated superiorly and laterally. It was acutely inflamed. A [place] dissector was used to take down adhesions around the neck of the gallbladder. The cystic duct was identified and skeletonized. The duct itself was thickened edematous. Because of this reason I used a FRAN brown cartridge linear stapler to transect the cystic duct. In similar fashion the cystic artery was identified and skeletonized . It clipped with a clip mining speculator and divided. There was a small posterior branch that was clipped and divided as well. the gallbladder was removed from the gallbladder fossa with electrocautery. It was placed into an Endo Catch bag. Thorough irrigation was performed. At the end of the procedure there was adequate hemostasis and no evidence of any bile leaks. Several small bleeding points on the gallbladder fossa were controlled using cautery. A final look around the abdomen showed no other abnormalities. The gallbladder and trochars were all removed and the abdomen was desufflated. The fascia of the camera port was closed using 0 Vicryl in a nkrwiw-rd-capff fashion. All the wounds were irrigated and closed using 4-0 Monocryl. Marcaine was injected around them for postoperative analgesia and skin glue used as a dressing. The patient was awaken extubated and transferred to recovery in stable condition. My POACHER WRINGER OPERATOR help desk assistant was present throughout the entire case... helped with prepping the patient. With exposure for trocar placement, as well as retracted the gallbladder throughout the case and also assisted with wound closure and dressing placement. I attest to the content of the Intraoperative Record and any orders documented therein. Any exceptions are noted below.
--- NOTE | 2023-06-15 17:29 | Anesthesiology Progress Note ---
Date of Service June 15, 2023 Anesthesia Post Procedure Vital Signs Vital Signs: Temp Pulse Pulse Resp BP BP BP 06/15/23 17:10 36.5 C 18 107/70 06/15/23 16:45 62 15 109/54 L 06/15/23 16:35 36.5 C 61 16 108/64 06/15/23 16:25 61 17 116/47 L 06/15/23 16:15 73 15 118/59 L 06/15/23 16:09 36.7 C 71 20 136/71 06/15/23 13:41 58 L 20 99/51 L 06/15/23 13:02 58 L 20 93/68 L 06/15/23 11:01 67 20 142/75 H 06/15/23 07:41 65 20 163/110 H 06/15/23 06:56 58 L 20 151/71 H 06/15/23 06:56 06/15/23 06:24 06/15/23 06:07 56 L 06/15/23 05:48 36.4 C L 65 156/88 H Pulse Ox O2 Del Method O2 Flow Rate 06/15/23 17:10 94 Room Air 06/15/23 16:45 94 Room Air 06/15/23 16:35 93 Room Air 06/15/23 16:25 93 Room Air 06/15/23 16:15 96 Room Air 06/15/23 16:09 99 Oxymask 5 06/15/23 13:41 93 Room Air 06/15/23 13:02 93 Room Air 06/15/23 11:01 97 Room Air 06/15/23 07:41 99 Room Air 06/15/23 06:56 98 Room Air 06/15/23 06:56 97 Room Air 06/15/23 06:24 99 Room Air 06/15/23 06:07 06/15/23 05:48 99 Room Air Pain Intensity Chest: Pain Intensity: 5 Transfer of Care Handoff Completed per policy Notes Mental Status: alert / awake / arousable Patient Amnestic to Procedure: Yes Nausea / Vomiting: adequately controlled Pain: adequately controlled Airway Patency, RR, SpO2: stable & adequate BP & HR: stable & adequate Hydration State: stable & adequate Anesthetic Complications: no major complications apparent
[2023-06-15] MEDS: metroNIDAZOLE 500 MG/100 ML BAG IV SCH (18:32)
[2023-06-15] MEDS: MoRPHine SULFATE 4 MG/ML 1 ML CARP\\VIAL IV PRN (18:54)
[2023-06-16] MEDS: ONDANSETRON INJ 2 MG/ML 2 ML VIAL IV PRN (00:42)
[2023-06-16] MEDS: MoRPHine SULFATE 2 MG/ML CARP IV PRN (03:33)
[2023-06-16 06:52] LABS: Basophils # (auto) 0.03 K/uL (0.00-0.20); Basophils % (auto) 0.5 %; Eosinophils # (auto) 0.02 K/uL (0.00-0.50); Eosinophils % (auto) 0.3 %; Hematocrit (blood only) 35.7 % (37.0-47.0); Hemoglobin 12.3 g/dl (12.0-16.0); Immature Granulocytes # (auto) 0.03 K/uL (0.01-0.20); Immature Granulocytes % (auto) 0.5 %; Lymphocytes # (auto) 1.47 K/uL (1.20-3.40); Lymphocytes % (auto) 23.1 %; Mean Corpuscular Hemoglobin 31.2 pg (25.0-34.0); Mean Corpuscular Hgb Conc 34.5 g/dL (32.0-36.0); Mean Corpuscular Volume 90.6 fL (80.0-100.0); Monocytes # (auto) 0.58 K/uL (0.11-0.59); Monocytes % (auto) 9.1 %; Neutrophils # (auto) 4.22 K/uL (1.40-6.50); Neutrophils % (auto) 66.5 %; Platelet Count 222 K/uL (130-400); RDW Coefficient of Variation 12.6 % (11.5-14.5); RDW Standard Deviation 41.9 fL (36.4-46.3); Red Blood Count 3.94 M/uL (4.20-5.40); White Blood Count 6.35 K/ul (4.8-10.8)
[2023-06-16 07:33] LABS: Albumin Globulin Ratio 2.1 (0.9-2); Albumin Level 3.7 gm/dl (3.4-5.0); BUN Creatinine Ratio 18.8 (10-20); Bilirubin,Total 2.6 mg/dl (0.2-1.0); Calcium 8.4 mg/dl (8.6-10.3); Creatinine Clr Calc Pharmacy 102.1 ml/min; Est GFR (African American) 114.4 ml/min; Est GFR (Non-African American) 98.7 ml/min; Globulin 1.8 gm/dl (2.5-4.0); Potassium 4.4 mmol/L (3.5-5.1); Total Protein 5.5 gm/dl (6.0-8.3)
[2023-06-16] MEDS: cefTRIAXone SODIUM 2,000 MG in DEXTROSE 5 % MINI-B 50 ML IV SCH (08:34)
--- NOTE | 2023-06-16 09:51 | Surgery Progress Note ---
Date of Service June 16, 2023 Assessment & Plan (1) Cholecystitis: Plan: POD 1 lap jhony clinically doing well however all her LFT's jumped. not ready for d/c. will obtain MRCP to eval (2) Elevated LFTs: Admission and Anticipated Discharge Date Admission Date: June 15, 2023 Subjective pt seen. feels great/would like to go home. Physical Exam Physical Exam: alert. nad. abd: soft. expected ttp. Results & Data Vital Signs (Past 12 Hours) Vital Signs Temp Pulse Resp BP Pulse Ox O2 Del Method 06/16/23 07:15 36.6 C 58 L 18 99/61 L 98 Room Air 06/16/23 03:44 36.5 C 61 16 113/69 94 Room Air 06/15/23 23:14 36.7 C 63 16 109/66 96 Room Air 06/15/23 22:28 Room Air PG Care Time/CCT Total # of Minutes Spent Total Time Spent with Patient: Total time spent is greater than 50% in coordination of care (as documented) at patient's floor/unit and/or counseling patient: Coding Level of Care Code 16504 Post Operative Follow-Up Diagnoses Cholecystitis K81.9 Elevated LFTs R79.89
[2023-06-16] MEDS: PANTOprazole 40 MG in SYRINGE 0 ML IV SCH (10:37)
--- NOTE | 2023-06-16 13:39 | Magnetic Resonance Report ---
MR MRCP HISTORY: POD#1 lap cholecystectomy, elevated LFTs TECHNIQUE: MRCP of the abdomen was performed without contrast according to standard departmental prot ocol COMPARISON STUDY: Abdomen and pelvis CT 06/15/2023. FINDINGS: Squeak Rattle And Leak Repairer images demonstrate a 2.1 cm heterogeneous lesion within the uterus. This is better ap preciated on the prior abdominal CT. Left basilar linear densities favor subsegmental atelectasis. Sm all cysts are seen within the left hepatic lobe and right kidney. No hydronephrosis. The spleen, adre nal glands, and pancreas are unremarkable. No retroperitoneal lymphadenopathy. Normal caliber abdomin al aorta. The patient is status post recent cholecystectomy. This likely accounts for the trace fluid within the cholecystectomy bed. No loculated fluid collections to suggest an abscess at this time. T here is mild intra and extra hepatic bile duct dilatation. The common bile duct measures up to 8 mm i n diameter. The main pancreatic duct is normal and course and caliber. There are few small stones wit hin the distal common bile duct measuring up to 5 mm. IMPRESSION: 1. Choledocholithiasis. This likely accounts for the mild intra and extrahepatic bile duct dilatation . 2. Status post recent cholecystectomy. This likely accounts for the trace fluid within the cholecyste ctomy bed. No loculated fluid collections identified. 3. A 2.1 cm heterogeneous lesion within the uterus. This is better appreciated on the prior abdomen a nd pelvis CT. Gynecologic consultation on an outpatient basis can be performed ACT 112: Negative or not required by law. Electronically signed by: Guru Nobles M.D. 06/16/2023 1:36 PM
--- NOTE | 2023-06-16 16:27 | Discharge Summary ---
Date of Service June 18, 2023 Admission HPI Per Admitting Provider Brianne is a 73-year-old female with past medical history of vestibular migraine, GERD and no history of cardiac, pulmonary, or renal disease who presented to the ER with abdominal pain, nausea, and some slow right rib and epigastric discomfort. She has had multiple episodes in the preceding month similar territory to reflux but much worse in quality. On ER evaluation she has no leukocytosis, no VALENTINE although has evidence clinically of some volume contraction, and does not have a transaminitis or hyperbilirubinemia. UA is contaminated/bland. Bio fire is negative. Gallbladder ultrasound shows cholelithiasis and gallbladder wall thickening suspicious for acute versus chronic cholecystitis. CTA performed for concerns of chest pain shows no thoracic dissection, no PE, and a right lower lobe airspace opacity? Mild focal infectious process recommended for 3-month follow-up to exclude pulmonary lesion. CT of the abdomen and pelvis shows a distended gallbladder as noted on ultrasound, mixed attenuation of the uterus favoring endometrial thickening but which should have nonemergent BENDING MACHINE OPERATOR follow-up and pelvic ultrasound is noted, otherwise no acute findings Per Patient: Approximately 1 month of symptoms overall, increasing in intensity and frequency. Pain is in her abdomen, stomach with distention and bloating feeling like "sometimes my stomach is going to explode ", is worsened with meals, is not worsened with exertion. Does have radiation to right shoulder. No pain at time of bedside assessment. Pain comes in spasms, last night lasting ~3 hours at a time with a burning quality. Recurred a fourth time ~1am and never went away until she came into the ER and got meds/fluids. Currently pain free +Radiation to right shoulder BMs normal, brown. No bloody/black/lissa colored BMs No shortness of breath. 1 episodes of feeling sweaty/warm overnight last night otherwise no sweats Denies fevers and shaking chills No history of heart, lung, or renal disease Denies pain on exertion. Feels she is able to walk and go about normal activities without any limiting dyspnea or chest discomfort Did have BCC of th enose removed, otherwise no history of cancer. No history of DVT/PE Medical History: Reviewed Medications: Reviewed Surgical History: Reviewed Family history: Reviewed Allergies: Reviewed Social History: Former tobacco use, quit 6 months prior to that 1/3ppd x20 year tobacco use. 1 glass wine/night no 5 nights per week Code Status: DNRDNI Admission Exam Per Admitting Provider General: A&Ox3. NAD. Cooperative. HEENT: Atraumatic, normocephalic. Vision/hearing intact Pulm: CTAB A&P. -wheezes, -rales, -rhonchi. Symmetrical chest rise. No increased work of breathing. No respiratory distress. Cardiac: RRR, -mrg. Radial pulses intact and symmetrical. Abdominal: +mild RUQ TTP, soft, no rebound/guarding, soft. BS present. Principal Diagnosis Choledocholithiasis status post cholecystectomy, not requiring ERCP Elevated transaminases - improving Discharge Exam General: No acute distress, nondiaphoretic, well-developed, well-nourished. Skin: The skin was without rashes, erythema, edema, or bruising. Cardiac: Regular rate and rhythm without murmurs gallops or rubs. Pulm: Clear to auscultation bilaterally without wheezes, rales or rhonchi. No retractions or accessory muscle use. Abdominal: Redness near umbilical incision - improving. Expected tenderness to palpation near post-surgical sites. Positive bowel sounds x 4. Soft, without masses or organomegaly. No guarding or rebound tenderness. Neuro: A&O x3. No focal neurological deficits. Discharge Data Allergies Allergy/AdvReac Type Severity Reaction Status Date / Time No Known Drug Allergies Allergy Verified 08/31/22 09:24 Consultations 06/15/23 10:40 Consult General Surgery Routine 06/15/23 11:42 ED Decision to Admit Stat Procedures Performed Operation Date: 06/15/23 12:00 Actual Procedures p Laparoscopic Cholecystectomy(Not Applicable) - Sami Conde DO Ordered Studies 06/15/23 06:42 CT abd pelvis IV con only Stat CT angio chest w con Stat 06/15/23 08:39 US gallbladder Stat 06/16/23 08:55 MR MRCP Stat Hospital Course (1) Acute acalculous cholecystitis: CT and abdominal pain suspicious for acute cholecystitis on presentation -- No evidence of obstructive disease, bilirubin and transaminases normal, no leukocytosis on presentation Laparoscopic cholecystectomy without complications Next morning, elevated transaminases and total bilirubin suggestive of choledocholithiasis -- MRCP confirmed this Plan to transfer to [facility] for ERCP, however transport fell through Next morning transaminases significantly decreased and total bilirubin normal, suggestive of passing of stone through common bile duct -- RUQ US confirmed this. Transport cancelled -- Transaminases continue to improve. Patient tolerated advancement of diet. -- Possible cellulitis of umbilical incision. Discharged on Augmentin. (2) Thickened endometrium: CT abdomen and pelvis revealed a 2.9 x 2.6 cm mixed attenuation abnormality within the central aspect of the uterus. -- This favors endometrial thickening, abnormal in a postmenopausal patient. Less likely, this could reflect a uterine lesion. -- Correlation with postmenopausal bleeding and follow-up with nonemergent pelvic ultrasound and gynecologic consultation is recommended. (3) Abnormal CT scan, lung: CT with developing right lower lobe airspace opacity. DDx includes occult malignancy, developing pneumonia. History of 20-year 1/3 pack/day tobacco use. Procalcitonin within normal limits on presentation. Patient was empirically covered with Rocephin as part of cholecystitis treatment Respiratory bio fire and MRSA swab negative Recommend repeat CT in 3 months to reassess Plan Chronic stable issues Osteoporosis: Outpatient follow-up, vitamin D/calcium supplementation as outpatient GERD: Decline EGD as outpatient. Continue PPI for stress prophylaxis Former tobacco use: Patient reports no tobacco use in 6 months, formerly 1/3 pack/day for approximately 20 years CODE STATUS: DNR; listed as conditional code. Patient reports in the setting of a complete cardiopulmonary arrest she would want to be DNR/DNI and would not want resuscitation consistent with DNR/DNI. Outside of a complete cardiopulm onary arrest she would be okay with aggressive measures including intubation/vasopressors --> listed a CC w/ OK for intubation/ventilation. Total Time Total Time Spent Total Time Spent (In Minutes): Greater than 30 minutes spent completing this discharge process including direct patient care, medication reconciliation, documentation, review of labs and images, and coordination of care. Discharge Plan Discharge Items Patient Disposition: Home - Self-Care Reason For Visit: CHOLECYSTITIS Discharge Diagnosis: Laparoscopic cholecystectomy Elevated transaminases - improving Activity: As commented below Lifting: No more than 10 pounds Bathing Comment: you can shower. no pools or bath for 2 weeks Exercise/Sports: Wait until after follow-up appointment Driving/Machine Use: no driving if taking anrcotic pain medication Non-emergency contact: Surgeon Call non-emergency contact if: you have any medication questions, your symptoms worsen, your pain is unusual for you, your temperature is above 101.5, your wound has increased redness, your wound has increased drainage and your wound pain has increased Follow-up/Referrals: Sami Conde DO [Surgeon] - 07/01/23 10:45 am (call office for a follow up in 2 weeks ) Avelino Levine [Primary Care Provider] - 06/27/23 8:45 am Diet: Regular Addtl Attending Provider Instructions: You were admitted to the hospital due to Claire cystitis (inflammation of the gallbladder). This is what caused your symptoms of abdominal pain, nausea, bloating, radiating pain to the right shoulder. You had surgery to remove your gallbladder (laparoscopic cholecystectomy). After the surgery, lab values indicated there may be a stone in your common bile duct. Because of this suspicion, you had imaging (MRCP) which did reveal choledocholithiasis (stone in the common bile duct). Initially, you are going to be transferred to [facility] for a procedure to remove the stone. However, you ended up passing the stone on your own and your lab values have been significantly decreasing daily. You had an ultrasound image which confirmed that there is no longer a stone in the common bile duct. Upon discharge from the hospital: * You are being prescribed an oral antibiotic for the redness around your umbilical incision. -- This antibiotic is called Augmentin. You will take this twice a day for 1 week. -- It is important to finish his course of antibiotic even if the redness goes away to ensure resolution of any infection. -- Please call your surgeon's office if you notice any increased pressure or drainage from the umbilical incision site. * There are no restrictions on your diet, but you may want to start with light meals that are low in fat. -- It can take a few weeks for your digestion to adjust after having your gallbladder removed. -- You may have indigestion, loose stools, or diarrhea. This is common. It should away in time. * Follow-up with your surgeon as advised. -- Please call their office if the symptoms do not go away within 1 week after your surgery: Extreme tiredness, pain around the incision, significant diarrhea or constipation, or loss of appetite. Please return to the hospital if you have any of the following: Fever or chills, redness or swelling of the incision, fluid leaking or bad smell from the incision, dark or rust colored urine, stool that is light in color instead of brown, worsening belly pain, rectal bleeding, shortness of breath, leg swelling, or chest pain. Addtl Cash Management Officer Provider Instructions: You have surgical glue called dermabond on your surgical site incisions. You may shower with this on. This will tend to come off within a couple of weeks. Do not pick at it. If the redness around your umbilical wound expands, you noticed increased pressure and or drainage in the area place call our office as it may need to be evaluated and possibly opened up. In the interim please complete the full course of antibiotic prescribed to you Pending Studies at Discharge: Yes Studies:: surgical pathology Stand-Alone Forms: My [facility], Smoking Cessation Medications and DC Order Prescriptions: New amoxicillin-pot clavulanate 875-125 mg tablet 1 tab PO BID Qty: 14 0RF oxycodone-acetaminophen [Percocet] 5-325 mg tablet 1 - 2 tab PO .q4-6h PRN (Reason: pain, for initial therapy, max 6 tabs per day) Qty: 12 0RF Continued Excedrin Migraine 250-250-65 mg tablet 2 tab PO ONCE PRN (Reason: Headache) esomeprazole magnesium [Nexium] 1 cap PO QAM diphenhydramine-acetaminophen [Tylenol PM Extra Strength] 25-500 mg tablet 1.5 tab PO HS PRN (Reason: Sleep) cholecalciferol (vitamin D3) 50 mcg (2,000 unit) capsule 50 mcg PO DAILY Qty: 30 8RF Advil See Rx Instructions .ROUTE .COMPLEX Rx Instructions: as directed Probiotic See Rx Instructions .ROUTE .COMPLEX Rx Instructions: as directed Discharge Orders: Discharge Order (Routine); Ordered 06/18/23 Ordered By: Elidia Ferrer/Other Patient Handouts: Low-Fiber Diet, DVT Post Op Prevention, Low-Fat Cooking Tips, Cholecystectomy Dc, ED Diet, Low Fat Admission Data Admit Date/Time: 06/15/23 12:01 Attending Provider: Flavio Henson Admit Provider: Dalton Cardenas Primary Care Provider: Avelino Levine Other Providers: Sami Conde; Dalton Cardenas Other Interventions: Discharge Summary Assessment (RN) Last Done: 06/18/23 13:47 Coding Level of Care Code 26064 INP/OBS DISCH >30 MIN Diagnoses Acute acalculous cholecystitis K81.0 Thickened endometrium R93.[address] scan, lung R91.8
[2023-06-16] MEDS: MoRPHine SULFATE 4 MG/ML 1 ML CARP\\VIAL IV ONE (17:30)
[2023-06-16] MEDS ORDERED: Nursing to Pharmacy Communication SCH (20:45)
[2023-06-17 08:29] LABS: Basophils # (auto) 0.04 K/uL (0.00-0.20); Basophils % (auto) 0.7 %; Eosinophils # (auto) 0.06 K/uL (0.00-0.50); Hematocrit (blood only) 36.9 % (37.0-47.0); Immature Granulocytes # (auto) 0.02 K/uL (0.01-0.20); Immature Granulocytes % (auto) 0.3 %; Lymphocytes # (auto) 1.78 K/uL (1.20-3.40); Lymphocytes % (auto) 30.4 %; Mean Corpuscular Hemoglobin 30.8 pg (25.0-34.0); Mean Corpuscular Hgb Conc 32.5 g/dL (32.0-36.0); Mean Corpuscular Volume 94.9 fL (80.0-100.0); Mean Platelet Volume 11.2 fL (9.4-12.4); Monocytes # (auto) 0.53 K/uL (0.11-0.59); Monocytes % (auto) 9.1 %; Neutrophils # (auto) 3.42 K/uL (1.40-6.50); Neutrophils % (auto) 58.5 %; Platelet Count 191 K/uL (130-400); RDW Coefficient of Variation 12.9 % (11.5-14.5); RDW Standard Deviation 45.1 fL (36.4-46.3); Red Blood Count 3.89 M/uL (4.20-5.40); White Blood Count 5.85 K/ul (4.8-10.8)
--- NOTE | 2023-06-17 09:36 | Surgery Progress Note ---
Date of Service June 17, 2023 Assessment & Plan (1) Elevated LFTs: Plan: doing well post op awaiting for transfer for ERCP (2) Cholecystitis: Admission and Anticipated Discharge Date Admission Date: June 15, 2023 Subjective pt seen. feeling ok. no new complaints. Physical Exam Physical Exam: alert. nad abd: soft. expected tenderness Results & Data Vital Signs (Past 12 Hours) Vital Signs Temp Pulse Resp BP Pulse Ox O2 Del Method 06/17/23 08:13 36.5 C 71 15 112/72 97 Room Air PG Care Time/CCT Total # of Minutes Spent Total Time Spent with Patient: Total time spent is greater than 50% in coordination of care (as documented) at patient's floor/unit and/or counseling patient: Coding Level of Care Code 30228 Post Operative Follow-Up Diagnoses Elevated LFTs R79.89 Cholecystitis K81.9
[2023-06-17 09:44] LABS: Albumin Globulin Ratio 1.9 (0.9-2); Albumin Level 3.9 gm/dl (3.4-5.0); BUN Creatinine Ratio 12.3 (10-20); Bilirubin,Total 0.9 mg/dl (0.2-1.0); Calcium 8.6 mg/dl (8.6-10.3); Est GFR (African American) 108.1 ml/min; Est GFR (Non-African American) 93.3 ml/min; Globulin 2.1 gm/dl (2.5-4.0); Potassium 3.8 mmol/L (3.5-5.1)
--- NOTE | 2023-06-17 14:28 | Ultrasound Report ---
US liver CLINICAL HISTORY: Abnormal LFTs TECHNIQUE: Multiple real-time sonographic images of the right upper quadrant were obtained. Comparison: Comparison is made to right upper quadrant ultrasound 06/15/2023 FINDINGS: The liver is diffusely homogenous with normal contour and echogenicity. No focal mass lesions are see n. No intrahepatic ductal dilatation is seen. Patient is status post cholecystectomy. The common duct measures 0.9 cm in diameter at the level of the hepatic artery. The visualized portions of the p ancreas appear normal. Right renal cyst is noted. No ascites or free fluid is seen in Guillermo's pouch. IMPRESSION: Unremarkable right upper quadrant ultrasound. ACT 112: Negative or not required by law. Electronically signed by: Joseph Hicks M.D. 06/17/2023 2:27 PM
[2023-06-17] MEDS: PIPER/TAZO 4.5g in D5W MINI-B 100 ML IV ONE (17:34)
[2023-06-17 17:42] LABS: Albumin Level 3.6 gm/dl (3.4-5.0); Bilirubin Direct 0.2 mg/dl (0-0.2); Bilirubin,Total 0.6 mg/dl (0.2-1.0); Total Protein 5.6 gm/dl (6.0-8.3)
--- NOTE | 2023-06-17 19:28 | Hospitalist Progress Note ---
Date of Service June 16, 2023 Assessment & Plan (1) Acute acalculous cholecystitis: Plan: CT and abdominal pain suspicious for acute acalculus cholecystitis No evidence of obstructive disease, AST/ALT/bilirubin are normal Patient continued on Rocephin/Flagyl No leukocytosis, nontoxic N.p.o., IVF maintenance IV Tylenol, scaled morphine ordered for pain control Laparoscopic cholecystectomy on 06/15/2023 Elevated transaminases on 06/16/2023 ([id number], [id number]) MRCP revealed choledocholithiasis, this likely accounts for the mild intra and extrahepatic bile duct dilation. Transfer to [facility] for ERCP pending (2) Thickened endometrium: Plan: Recommend nonemergent OB follow-up and pelvic ultrasound Patient reports no history of vaginal bleeding, pelvic pain or TIRE MECHANIC symptoms. Discontinued follow-up with OV previously due to age CT abdomen and pelvis revealed a 2.9 x 2.6 cm mixed attenuation abnormality within the central aspect of the uterus. -- This favors endometrial thickening, abnormal in a postmenopausal patient. Less likely, this could reflect a uterine lesion. -- Correlation with postmenopausal bleeding and follow-up with nonemergent pelvic ultrasound and gynecologic consultation is recommended. (3) Abnormal CT scan, lung: Plan: CT with developing right lower lobe airspace opacity. DDx includes occult malignancy, developing pneumonia. History of 20-year 1/3 pack/day tobacco use. Procalcitonin within normal limits. Patient is empirically covered with Rocephin as part of cholecystitis treatment above Respiratory bio fire is negative MRSA nares negative Recommend repeat CT in 3 months to reassess if patient is otherwise stable Plan Chronic stable issues Osteoporosis: Outpatient follow-up, vitamin D/calcium supplementation as outpatient GERD: Decline EGD as outpatient. Continue PPI for stress prophylaxis Former tobacco use: Patient reports no tobacco use in 6 months, formerly 1/3 pack/day for approximately 20 years CODE STATUS: DNR; listed as conditional code. Patient reports in the setting of a complete cardiopulmonary arrest she would want to be DNR/DNI and would not want resuscitation consistent with DNR/DNI. Outside of a complete cardiopulmonary arrest she would be okay with aggressive measures including intubation/vasopressors --> listed a CC w/ OK for intubation/ventilation. Admission and Anticipated Discharge Date Admission Date: June 15, 2023 Subjective Transfer to [facility] was scheduled for 06/16/2023 due to elevated transaminases status postcholecystectomy, with MRCP revealing choledocholithiasis requiring ERCP. However, due to transport problems, patient was not transferred to [facility]. Continued medical management at [facility] was provided to the patient. Physical Exam Physical Exam: General: No acute distress, nondiaphoretic, well-developed, well-nourished. Skin: The skin was without rashes, erythema, edema, or bruising. Cardiac: Regular rate and rhythm without murmurs gallops or rubs. Pulm: Clear to auscultation bilaterally without wheezes, rales or rhonchi. No retractions or accessory muscle use. Abdominal: Tender to palpation near post-surgical sites. Positive bowel sounds x 4. Soft, without masses or organomegaly. No guarding or rebound tenderness. Neuro: A&O x3. No focal neurological deficits. Results & Data Results & Data Vital Signs (Past 12 Hours) Vital Signs Temp Pulse Pulse Resp BP BP Pulse Ox 06/17/23 14:28 36.4 C L 60 16 122/76 96 06/17/23 12:59 36.6 C 77 15 116/68 98 06/17/23 08:13 36.5 C 71 15 112/72 97 O2 Del Method 06/17/23 14:28 Room Air 06/17/23 12:59 Room Air 06/17/23 08:13 Room Air Laboratory Results Reviewed CBC Reviewed chemistries Reviewed MRCP PG Care Time/CCT Total # of Minutes Spent Total Time Spent with Patient: Total time spent is greater than 50% in coordination of care (as documented) at patient's floor/unit and/or counseling patient: Coding Level of Care Code 75738 SUB INP/OBS CARE 3/50MIN Diagnoses Acute acalculous cholecystitis K81.0 Thickened endometrium R93.[address] scan, lung R91.8
--- NOTE | 2023-06-17 19:54 | Hospitalist Progress Note ---
Date of Service June 17, 2023 Assessment & Plan (1) Acute acalculous cholecystitis: Plan: CT and abdominal pain suspicious for acute acalculus cholecystitis No evidence of obstructive disease, AST/ALT/bilirubin are normal Patient continued on Rocephin/Flagyl No leukocytosis, nontoxic N.p.o., IVF maintenance IV Tylenol, scaled morphine ordered for pain control Laparoscopic cholecystectomy on 06/15/2023 Elevated transaminases on 06/16/2023 (EZS=[id number], PPA=[id number]) MRCP revealed choledocholithiasis, this likely accounts for the mild intra and extrahepatic bile duct dilation. Plan to transfer to [facility] for ERCP on 06/16/23, however transport fell through. Transaminases significantly declined (AST 656, ALT 1462, total bilirubin 0.9), suggestive of passing of stone through common bile duct. Right upper quadrant ultrasound revealed no stone in the common bile duct at this time. Redness around umbilical incision -- Zosyn 4.5 g IV every 8 hours (last dose 06/21/2023) Continue trending LFTs, assuming these continue to trend downward, anticipate discharge on 06/18/2023 (2) Thickened endometrium: Plan: Recommend nonemergent OB follow-up and pelvic ultrasound Patient reports no history of vaginal bleeding, pelvic pain or [employer] symptoms. Discontinued follow-up with OV previously due to age CT abdomen and pelvis revealed a 2.9 x 2.6 cm mixed attenuation abnormality within the central aspect of the uterus. -- This favors endometrial thickening, abnormal in a postmenopausal patient. Less likely, this could reflect a uterine lesion. -- Correlation with postmenopausal bleeding and follow-up with nonemergent pelvic ultrasound and gynecologic consultation is recommended. (3) Abnormal CT scan, lung: Plan: CT with developing right lower lobe airspace opacity. DDx includes occult malignancy, developing pneumonia. History of 20-year 1/3 pack/day tobacco use. Procalcitonin within normal limits. Patient is empirically covered with Rocephin as part of cholecystitis treatment above Respiratory bio fire is negative MRSA nares negative Recommend repeat CT in 3 months to reassess if patient is otherwise stable Plan Chronic stable issues Osteoporosis: Outpatient follow-up, vitamin D/calcium supplementation as outpatient GERD: Decline EGD as outpatient. Continue PPI for stress prophylaxis Former tobacco use: Patient reports no tobacco use in 6 months, formerly 1/3 pack/day for approximately 20 years CODE STATUS: DNR; listed as conditional code. Patient reports in the setting of a complete cardiopulmonary arrest she would want to be DNR/DNI and would not want resuscitation consistent with DNR/DNI. Outside of a complete cardiopulmonary arrest she would be okay with aggressive measures including intubation/vasopressors --> listed a CC w/ OK for intubation/ventilation. Admission and Anticipated Discharge Date Admission Date: June 15, 2023 Subjective Patient seen and evaluated at bedside with significant other. She was supposed to get transferred to [facility] last night for an ERCP due to choledocholithiasis. However, transaminases significantly decreased overnight, suggestive of passing the stone in the common bile duct. A liver ultrasound was ordered to evaluate if the stone was present or passed. I personally discussed the results of the ultrasound with Dr. Joseph Hicks on the phone, who felt as though there is no evidence of a stone remaining in the common bile duct at this time. LFTs from this afternoon showed continued decrease of transaminases and normal total bilirubin, further suggestive of a patent common bile duct. Transfer to [facility] was canceled at this time. I discussed the case with general surgery who is agreeable to continue trending LFTs. Additionally, patient has some redness of her umbilical incision, and is receiving IV Zosyn. Assuming her LFTs continue to trend downward in the morning, she can be discharged home tomorrow. Physical Exam Physical Exam: General: No acute distress, nondiaphoretic, well-developed, well-nourished. Skin: The skin was without rashes, erythema, edema, or bruising. Cardiac: Regular rate and rhythm without murmurs gallops or rubs. Pulm: Clear to auscultation bilaterally without wheezes, rales or rhonchi. No retractions or accessory muscle use. Abdominal: Redness near umbilical incision. Expected tenderness to palpation near post-surgical sites. Positive bowel sounds x 4. Soft, without masses or organomegaly. No guarding or rebound tenderness. Neuro: A&O x3. No focal neurological deficits. Results & Data Results & Data Vital Signs (Past 12 Hours) Vital Signs Temp Pulse Pulse Resp BP BP Pulse Ox 06/17/23 14:28 36.4 C L 60 16 122/76 96 06/17/23 12:59 36.6 C 77 15 116/68 98 06/17/23 08:13 36.5 C 71 15 112/72 97 O2 Del Method 06/17/23 14:28 Room Air 06/17/23 12:59 Room Air 06/17/23 08:13 Room Air Laboratory Results Reviewed CBC Reviewed CMP Reviewed right upper quadrant ultrasound Diagnostic Findings Liver ultrasound 06/17/2023: The liver is diffusely homogenous with normal contour and echogenicity. No focal mass lesions are seen. No intrahepatic ductal dilatation is seen. Patient is status post cholecystectomy. The common duct measures 0.9 cm in diameter at the level of the hepatic artery. The visualized portions of the pancreas appear normal. Personally discussed impression of ultrasound with Dr. Joseph Hicks via phone call who stated no stone in common bile duct. PG Care Time/CCT Total # of Minutes Spent Total Time Spent with Patient: Total time spent is greater than 50% in coordination of care (as documented) at patient's floor/unit and/or counseling patient: Coding Level of Care Code 61034 SUB INP/OBS CARE 50MIN Diagnoses Acute acalculous cholecystitis K81.0 Thickened endometrium R93.[address] scan, lung R91.8
[2023-06-17] MEDS: LORazepam 0.5 MG TAB PO ONE (20:20)
[2023-06-17] MEDS: PIPERACILLIN/TAZOBACTAM 4.5 GM in DEXTROSE 5% MINI-B 100 ML IV SCH (23:37)
[2023-06-18 06:42] LABS: Basophils # (auto) 0.03 K/uL (0.00-0.20); Basophils % (auto) 0.6 %; Eosinophils # (auto) 0.07 K/uL (0.00-0.50); Eosinophils % (auto) 1.3 %; Hematocrit (blood only) 33.9 % (37.0-47.0); Hemoglobin 10.9 g/dl (12.0-16.0); Immature Granulocytes # (auto) 0.02 K/uL (0.01-0.20); Immature Granulocytes % (auto) 0.4 %; Mean Corpuscular Hemoglobin 30.7 pg (25.0-34.0); Mean Corpuscular Hgb Conc 32.2 g/dL (32.0-36.0); Mean Corpuscular Volume 95.5 fL (80.0-100.0); Mean Platelet Volume 10.9 fL (9.4-12.4); Monocytes # (auto) 0.55 K/uL (0.11-0.59); Monocytes % (auto) 10.3 %; Neutrophils # (auto) 3.07 K/uL (1.40-6.50); Neutrophils % (auto) 57.4 %; Platelet Count 178 K/uL (130-400); RDW Coefficient of Variation 12.6 % (11.5-14.5); Red Blood Count 3.55 M/uL (4.20-5.40); White Blood Count 5.34 K/ul (4.8-10.8)
[2023-06-18 07:13] LABS: BUN Creatinine Ratio 9.4 (10-20); Calcium 8.2 mg/dl (8.6-10.3); Creatinine Clr Calc Pharmacy 76.6 ml/min; Est GFR (African American) 104.1 ml/min; Est GFR (Non-African American) 89.8 ml/min; Potassium 3.7 mmol/L (3.5-5.1)
[2023-06-18 07:17] LABS: Albumin Globulin Ratio 1.6 (0.9-2); Albumin Level 3.3 gm/dl (3.4-5.0); Bilirubin,Total 0.6 mg/dl (0.2-1.0); Globulin 2.1 gm/dl (2.5-4.0); Total Protein 5.4 gm/dl (6.0-8.3)
[2023-06-18] MEDS ORDERED: oxyCODONE HCL IR 5 MG TAB (IMMEDIATE RELEASE) PO PRN (09:21)
--- NOTE | 2023-06-18 09:33 | Surgery Progress Note ---
Date of Service June 18, 2023 Assessment & Plan (1) Cholecystitis: Plan: Patient is s/p lap jhony on 3 POD#1 with elevated LFTs and MRCP evidence of choledocholithiasis, trsfer to [facility] initiated While awaiting transfer LFTs have been downtrending. RUQ US obtained yesterday showed no evidence of CBD stones Today they continue to downtrend, Tb 0.6, remaining coming down Was started on Zosyn yesterday for redness and concern for infection of umbilical incision. appears stable today From our standpoint may adv diet as tolerates and dispo on course of po abx f/u in clinic with us within 1 week for evaluation or sooner if fevers, worsening pain, concerns regarding wound, vomiting, et She demonstrated understanding. okay for dispo when ok w/ medicine Admission and Anticipated Discharge Date Admission Date: June 15, 2023 Subjective Patient feeling okay this AM. Some mild pain that she says is not worsening. Is going to try some liquids this AM Physical Exam Physical Exam: awake/alert, no distress Gastrointestinal (Abdomen): Inspection/Auscultation: + abdominal surgical incision (c/d/i, redness and some ecchymosis noted to umbilical incision, stable ); abdomen not distended Percussion/Palpation: + abdomen tender (expected leland incision discomfort) and abdomen soft Results & Data Vital Signs (Past 12 Hours) Vital Signs Temp Pulse Resp BP Pulse Ox O2 Del Method 06/18/23 07:45 97.3 F L 58 L 14 115/71 93 Room Air PG Care Time/CCT Total # of Minutes Spent Total Time Spent with Patient: Total time spent is greater than 50% in coordination of care (as documented) at patient's floor/unit and/or counseling patient: Coding Level of Care Code 70929 Post Operative Follow-Up Diagnoses Cholecystitis K81.9
== END 2023-06-18 15:29 | disposition home or self-care (01) | DRG 419 ==
LOC: ED 05:46 → SUATTDRO 12:01 → 3W 12:01